=== PATIENT | male | born 1950 | race Caucasian/White ===

== ENCOUNTER 2018-05-30 13:45 | Day surgery (SDC) | payer OTHER ==
[~2018-05-30] VITALS: Ht 165.1 cm; Wt 77.1 kg
--- NOTE | 2018-05-30 14:21 | NUR ---
PACIENTE ALERTA Y ORIENTADO POR JEY ESFERAS QUIEN REFIERE VENIR A ER POR REFERIDO DE DR. QUEZADA PARA EVALUACION MEDICA. PACIENTE NO VERBALIZA DOLOR. SE OBSERVA PACIENTE COLOR AMARILLO.
--- NOTE | 2018-05-30 17:52 | NUR ---
SHANNA ORIENTA A PACIENTE SOBRE ORDENES MEDICAS, COLECTA MUESTRAS DE JANNY, CANALIZA VENA Y ADMINISTRA MEDICAMENTOS.
--- NOTE | 2018-05-31 00:31 | NUR ---
SE RECIBE PACIENTE ALERTA Y ORIENTADA EN CAMA EN COMPANIA DE FAMILIAR, PACIENTE CON H/L PATENTE LUIS DE EDEMA Y ERRITEMA. PACIENTE NPO, EN ESPERA DE ENDOCOPIA EN LA MANANA. SE AZEB A PACIENTE EN CAMA BAJO OBSERVACION POR CAMBIOS EN WARD CONDICION.
--- NOTE | 2018-05-31 07:38 | NUR ---
SE RECIBE DE TURNO ANTERIOR. PACIENTE MASCULINO. ALERTA Y ORIENTADO EN JEY ESFERAS. CABECERA A 30 GR[address]. BARANDAS ELEVADAS POR WARD SEGURIDAD. BUEN PATRON RESPIRATORIO. PIEL TIBIA AL TACTO. CANALIZACION PATENTE, LUIS DE EDEMA Y/O ENROJECIMIENTO CON HEPARIN LOCK COLOCADO. PACIENTE EN ESPERA DE CONSULTA CON DR LEIGHANN MABRY. SE CORROBORA CON ENDOSCOPIA QUE PACIENTE ESTA POSTEADO PARA ESTUDIO EL MALIA DE HONEY.
--- NOTE | 2018-05-31 07:41 | NUR ---
SE RECIBE PTE DEL TURNO ANTERIOR EN CAMA CON BARANDAS ELEVADAS CONIVFS PATENTE CON HEP LOCK , ALERTA, ORIENTADO POR JEY. ACOMPANADO POR FAMILIAR. REFIERE SENTIRSE MEJOR .PENDIENTE A CONSULTA CON DR.RIVERA MABRY.SE MANTIENE EN OBSERVACION.
== END 2018-06-01 08:00 | disposition home or self-care (01) ==
LOC: ER 13:45 → EDSTATUS 16:03 → CIR.AMB 05-31 07:00 → MEDI 05-31 07:53 → SEC-K 05-31 07:53 → ER 05-31 07:53 → SEC-K 05-31 11:50 → MEDI 05-31 11:50 → CIR.AMB 05-31 14:00 → MEDI 06-01 18:46
DX: K83.1 Obstruction of bile duct (principal); K83.8 Other specified diseases of biliary tract

== ENCOUNTER 2018-06-11 09:06 | Inpatient (IN) | payer OTHER ==
[~2018-06-11] VITALS: Ht 165.1 cm; Wt 77.1 kg
--- NOTE | 2018-06-11 09:32 | NUR ---
SE RECIBE PTE ALERTA Y ORIENTADO X3,REFIERE TENER PROBLEMAS PARA ORINAR ,REFIERE QUE DESDE ANOCHE ESTA CON DOLOR EN EL AREA DE LA VEGA,TIENE LOS OJOS AMARILLENTOS,ES PTE DEL .
--- NOTE | 2018-06-11 11:09 | NUR ---
PACIENTE ALERTA Y ORIENTADO EVALUADO POR EL DR. MTZ SE ORIENTA A PACIENTE SOBRE TRATAMIENTO MEDICO SE EXTRAEN MUESTRAS DE JANNY Y SE ADMINSITRAN MEDICAMENTOS UDAY ORDEN MEDICA BAJO MEDIDAS ASEPTICAS. SE INSERTA SONDA URINARIA SE OBSERVA ORINA AMARILLO OSCURO.
--- NOTE | 2018-06-11 17:18 | NUR ---
SE RECIBE MASCULINO ALERTA Y ORIENTADO POR JEY ESFERAS, EN CALI CON BARANDAS SEGURAS Y ELEVADAS. AREA DE VENOPUNCION LUIS DE EDEMA O ENROJECIMIENTO. TERRY PATENTE DRENANDO ORINA COLOR AMARILLO INTENSO. SE MANTIENE EN ESPERA DE DRA. SANTIAGO.
[2018-06-22] MEDS ORDERED: Ursodiol 300MG CAPSU PO (07:45)
== END 2018-06-22 08:55 | disposition home or self-care (01) | DRG 445 ==
LOC: ER 09:06 → MEDI 18:01
PROVIDERS: ADMIT Internal Medicine
PROC: BW40ZZZ Ultrasonography of Abdomen (ICD-10-PCS; 2018-06-11)
PROC: BW21ZZZ Computerized Tomography (CT Scan) of Abdomen and Pelvis (ICD-10-PCS; 2018-06-12)
PROC: 0F798DZ Dilation of Common Bile Duct with Intraluminal Device, Via Natural or Artificial Opening Endoscopic (ICD-10-PCS; principal; 2018-06-17)
PROC: 0FPB8DZ Removal of Intraluminal Device from Hepatobiliary Duct, Via Natural or Artificial Opening Endoscopic (ICD-10-PCS; 2018-06-17)
PROC: 0FBG3ZX Excision of Pancreas, Percutaneous Approach, Diagnostic (ICD-10-PCS; 2018-06-20)
PROC: 0FB13ZX Excision of Right Lobe Liver, Percutaneous Approach, Diagnostic (ICD-10-PCS; 2018-06-20)
PROC: BF37ZZZ Magnetic Resonance Imaging (MRI) of Pancreas (ICD-10-PCS; 2018-06-20)
PROC: BW30YZZ Magnetic Resonance Imaging (MRI) of Abdomen using Other Contrast (ICD-10-PCS; 2018-06-20)
DX: K83.1 Obstruction of bile duct (principal); K83.09 Other cholangitis; E80.6 Other disorders of bilirubin metabolism; R33.8 Other retention of urine; K86.89 Other specified diseases of pancreas; R74.8 Abnormal levels of other serum enzymes; K56.41 Fecal impaction
CPT/HCPCS: 74182